=== PATIENT | female | born 1990 | race Asian ===

== ENCOUNTER 2018-09-22 17:56 | Emergency (ER) | payer BC ==
--- NOTE | 2018-09-22 18:02 | PDOC ---
Rapid Medical Evaluation Time Seen by Provider: 09/22/18 18:00 Medical Evaluation: 09/22/18 18:01 I have performed a brief in-person evaluation of this patient. The patient presents with a chief complaint of: vaginal bleeding Pertinent physical exam findings: deferred I have ordered the following: TVUS, labs The patient will proceed to the ED for further evaluation. Discharge Disposition - Diagnosis Vaginal bleeding affecting early - Referrals - Patient Instructions - Post Discharge Activity
[2018-09-22 18:06] VITALS: BP 128/84; PULSE 98; TEMP 98; BMI 28.5
[2018-09-22 18:51] LABS: HEMOGLOBIN 11.9 GM/dL (10.7-15.3); RBC 4.18 M/mm3 (3.60-5.2); WHITE BLOOD COUNT 7.4 K/mm3 (4.0-10.0)
[2018-09-22 18:52] LABS: EOS % 3.6 % (0-4.5); HEMATOCRIT 35.7 % (32.4-45.2); LYMPH % 32.7 % (8-40); MCH 28.6 pg (25.7-33.7); MCHC 33.4 g/dl (32.0-36.0); MEAN CELL VOLUME 85.6 fl (80-96); MONO % 6.4 % (3.8-10.2); NEUT % 56.3 % (42.8-82.8); PLATELET COUNT 241 K/MM3 (134-434)
[2018-09-22 19:22] LABS: ANION GAP 9 MMOL/L (8-16); BLOOD UREA NITROGEN 14 mg/dL (7-18); CHLORIDE 102 mmol/L (98-107); CO2 25 mmol/L (21-32); CREATININE 0.8 mg/dL (0.55-1.3); GLUCOSE,RANDOM 94 mg/dL (74-106); POTASSIUM 4.2 mmol/L (3.5-5.1); SODIUM 136 mmol/L (136-145)
[2018-09-22 19:25] LABS: HYALINE CASTS 0 /hpf (0-8); PH,URINE 6.5 (5.0-8.0); URINE APPEARANCE CLEAR; URINE BACTERIA 29.3 /hpf (NEGATIVE); URINE BILIRUBIN NEGATIVE (NEGATIVE); URINE COLOR YELLOW; URINE GLUCOSE (UA) NEGATIVE (NEGATIVE); URINE KETONE NEGATIVE (NEGATIVE); URINE LEUK ESTERASE NEGATIVE (NEGATIVE); URINE NITRITE NEGATIVE (NEGATIVE); URINE PROTEIN NEGATIVE (NEGATIVE); URINE RBC 153 /hpf (0-4); URINE UROBILINOGEN 0.2 mg/dL (0.2-1.0); URINE WBC 1 /hpf (0-5)
--- NOTE | 2018-09-22 20:22 | PDOC ---
History of Present Illness - General History Source: Patient Exam Limitations: No Limitations - History of Present Illness Initial Comments: 09/22/18 20:39 The patient is a 28 year old female () who presents to the emergency department with vaginal bleeding for several days. The patient reports that she has been experiencing intermittent spotting since her period ended on the . She states that she followed up with OB about 4 days ago by which she was noted to be . The patient reports on going spotting and some clots last night by which she came into the ED today for further evaluation. The patient reports that this is her second and her first was an emergency C- section at 29 weeks. She states that her first child is now 2 years old. The patient endorses some abdominal cramping and lower back pain with her symptoms. She denies any other symptoms or complaints. <Bairon Gomez - Last Filed: 09/22/18 20:38> <Delaney Mike - Last Filed: 09/23/18 02:38> - General Chief Complaint: Vaginal Bleeding Stated Complaint: BLEEDING Time Seen by Provider: 09/22/18 18:00 Past History <Bairon Gomez - Last Filed: 09/22/18 20:38> - Past Medical History COPD: No - Suicide/Smoking/Psychosocial Hx Smoking History: Never smoked Hx Alcohol Use: No Drug/Substance Use Hx: No <Delaney Mike - Last Filed: 09/23/18 02:38> - Past Medical History Allergies/Adverse Reactions: Allergies Allergy/AdvReac Type Severity Reaction Status Date / Time No Known Allergies Allergy Verified 09/22/18 18:06 Review of Systems - Review of Systems Able to Perform ROS?: Yes <Bairon Gomez - Last Filed: 09/22/18 20:38> - Review of Systems Able to Perform ROS?: Yes Is the patient limited Bengali proficient: No Constitutional: No: Symptoms Reported, See HPI, Chills, Diaphoresis, Fever, Loss of Appetite, Malaise, Night Sweats, Weakness, Weight Stable, Unintentional Wgt. Loss, Unexplained wgt Loss, Other HEENTM: No: Symptoms Reported, See HPI, Eye Pain, Blurred Vision, Tearing, Recent change in vision, Double Vision, Cataracts, Ear Pain, Ocular Prothesis, Ear Discharge, Nose Pain, Nose Congestion, Tinnitus, Nose Bleeding, Hearing Loss , Throat Pain, Throat Swelling, Mouth Pain, Dental Problems, Difficulty Swallowing, Mouth Swelling, Other Respiratory: No: Symptoms reported, See HPI, Cough, Orthopnea, Shortness of Breath, SOB with Exertion, SOB at Rest, Stridor, Wheezing, Productive cough, Hemoptysis, Other Cardiac (ROS): No: Symptoms Reported, See HPI, Chest Pain, Edema, Irregular Heart Rate, Lightheadedness, Palpitations, Syncope, Chest Tightness, Other ABD/GI: No: Symptoms Reported, See HPI, Abdominal Distended, Abd. Pain w/ defecation, Blood Streaked Bowels, Constipated, Diarrhea, Difficulty Swallowing , Nausea, Poor Appetite, Poor Fluid Intake, Rectal Bleeding, Vomiting, Indigestion, Abdominal cramping, Tarry Stools, Other : Yes: Other (scant vaginal bleeding) Musculoskeletal: No: Symptoms Reported, See HPI, Back Pain, Gout, Joint Pain, Joint Swelling, Muscle Pain, Muscle Weakness, Neck Pain, Joint Stiffness, Other Integumentary: No: Symptoms Reported, See HPI, Bruising, Change in Color, Change in Hair/Nails, Dryness, Erythema, Flushing, Lesions, Lumps, Pallor, Pruritus, Rash, Sweating, Other Neurological: No: Symptoms reported, See HPI, Headache, Numbness, Paresthesia, Pre-Existing Deficit, Seizure, Tingling, Tremors, Weakness, Unsteady Gait, Ataxia, Dizziness, Other <Delaney Mike - Last Filed: 09/23/18 02:38> *Physical Exam - Vital Signs Last Vital Signs Temp Pulse Resp BP Pulse Ox 98.0 F 98 H 20 128/84 99 09/22/18 18:01 09/22/18 18:01 09/22/18 18:01 09/22/18 18:01 09/22/18 18:01 <Bairon Gomez - Last Filed: 09/22/18 20:38> - Vital Signs Last Vital Signs Temp Pulse Resp BP Pulse Ox 98.0 F 98 H 20 128/84 99 09/22/18 18:01 09/22/18 18:01 09/22/18 18:01 09/22/18 18:01 09/22/18 18:01 <Delaney Mike - Last Filed: 09/23/18 02:38> ED Treatment Course - LABORATORY CBC & Chemistry Diagram: 09/22/18 18:19 09/22/18 18:19 - ADDITIONAL ORDERS Additional order review: Laboratory Results 09/22/18 09/22/18 18:29 18:19 Sodium 136 Potassium 4.2 Chloride 102 Carbon Dioxide 25 Anion Gap 9 BUN 14 Creatinine 0.8 Creat Clearance w eGFR 84.22 Random Glucose 94 Calcium 9.0 Beta HCG, Quant 5784.6 Urine Color Yellow Urine Appearance Clear Urine pH 6.5 Ur Specific [place] 1.022 Urine Protein Negative Urine Glucose (UA) Negative Urine Ketones Negative Urine Blood 3+ H Urine Nitrite Negative Urine Bilirubin Negative Urine Urobilinogen 0.2 Ur Leukocyte Esterase Negative Urine WBC (Auto) 1 Urine RBC (Auto) 153 Urine Casts (Auto) 0 U Epithel Cells (Auto) 1.0 Urine Bacteria (Auto) 29.3 09/22/18 18:19 RBC 4.18 MCV 85.6 MCHC 33.4 RDW 14.0 MPV 9.0 Neutrophils % 56.3 Lymphocytes % 32.7 Monocytes % 6.4 Eosinophils % 3.6 Basophils % 1.0 <Bairon Gomez - Last Filed: 09/22/18 20:38> - LABORATORY CBC & Chemistry Diagram: 09/22/18 18:19 09/22/18 18:19 - ADDITIONAL ORDERS Additional order review: Laboratory Results 09/22/18 09/22/18 18:29 18:19 Sodium 136 Potassium 4.2 Chloride 102 Carbon Dioxide 25 Anion Gap 9 BUN 14 Creatinine 0.8 Creat Clearance w eGFR 84.22 Random Glucose 94 Calcium 9.0 Beta HCG, Quant 5784.6 Urine Color Yellow Urine Appearance Clear Urine pH 6.5 Ur Specific [place] 1.022 Urine Protein Negative Urine Glucose (UA) Negative Urine Ketones Negative Urine Blood 3+ H Urine Nitrite Negative Urine Bilirubin Negative Urine Urobilinogen 0.2 Ur Leukocyte Esterase Negative Urine WBC (Auto) 1 Urine RBC (Auto) 153 Urine Casts (Auto) 0 U Epithel Cells (Auto) 1.0 Urine Bacteria (Auto) 29.3 09/22/18 18:19 RBC 4.18 MCV 85.6 MCHC 33.4 RDW 14.0 MPV 9.0 Neutrophils % 56.3 Lymphocytes % 32.7 Monocytes % 6.4 Eosinophils % 3.6 Basophils % 1.0 <Delaney Mike - Last Filed: 09/23/18 02:38> Medical Decision Making - Medical Decision Making 09/22/18 20:2 28-year-old female presents with vaginal bleeding and states that she is and has been to CLINICAL FIELD SPECIALIST for care. [facility] and got an [facility] and states that her beta-hCG was about 6000. Her last menstrual period was August 28 to September 01 and since then she's had some intermittent vaginal spotting. Beta-hCG 2, para 1. Past surgical history 1. The radiologist, Dr. Levine called with concern finding no IUP , but a right adnexal mass that measured 3.5 cm x 1.8 cm with positive color doppler and concern for ectopic 09/23/18 02:[address] Alvares and she ordered methotrexate which was given pt will follow up with Dr Cevallos or Dr Alvares this week for repeat bhcg imp ectopic preg <Delaney Mike - Last Filed: 09/23/18 02:38> *DC/Admit/Observation/Transfer - Attestations Scribe Attestion: 09/22/18 20:43 Documentation prepared by Biaron Gomez, acting as medical records receptionist for Delaney Mike MD. <Bairon Gomez - Last Filed: 09/22/18 20:38> <Delaney Mike - Last Filed: 09/23/18 02:38> Diagnosis at time of Disposition: Ectopic Qualifiers: Location of ectopic : tubal Intrauterine status: without intrauterine Laterality: right Qualified Code(s): O00.101 - Right tubal without intrauterine - Discharge Dispostion Disposition: HOME Condition at time of disposition: Stable - Referrals Referrals: Kinga Cevallos DO [Staff Physician] - Marisa Alvares MD [Staff Physician] - - Patient Instructions Printed Discharge Instructions: DI for Ectopic , Methotrexate ( Alternative Therapy) Additional Instructions: YOU HAVE BEEN DIAGNOSED WITH AN ECTOPIC AND NEED TO SEE YOUR CLINICAL FIELD SPECIALIST ON FRIDAY OR FRIDAY. CALL YOUR CLINICAL FIELD SPECIALIST FOR AN APPOINTMENT THIS WEEK YOU HAVE BEEN GIVEN A METHOTREXATE INJECTION
[2018-09-22] MEDS ORDERED: METHOTREXATE SODIUM/PF 25 MG/ML VIAL IM ONE (21:08)
== END 2018-09-22 23:05 | disposition home or self-care (01) ==
LOC: JER 17:56
PROC: 3E023GC Introduction of Other Therapeutic Substance into Muscle, Percutaneous Approach (ICD-10-PCS; principal; 2018-09-22)
DX: O26.891 Other specified pregnancy related conditions, first trimester (principal); O00.101 Right tubal pregnancy without intrauterine pregnancy; Z3A.01 Less than 8 weeks gestation of pregnancy
CPT/HCPCS: 36415; 76817-TC; 80048; 81003; 84702; 85025; 86850; 86900; 86901; 87086; 99283-25; J9260

== ENCOUNTER 2018-10-22 04:52 | Day surgery (SDC) | payer BC ==
[2018-10-21 15:36] VITALS: BMI 29.0
[2018-10-22] MEDS ORDERED: PROPOFOL 20 ML ONE (11:56)
[2018-10-22] MEDS ORDERED: MIDAZOLAM HCL 2 MG/2 ML SINGLE DOSE VIAL ONE (11:57)
[2018-10-22] MEDS ORDERED: ACETAMINOPHEN 325 MG TABLET (FP) PO PRN (12:09)
[2018-10-22] MEDS ORDERED: IBUPROFEN 800 MG/8 ML IJ IVPB PRN (12:09)
--- NOTE | 2018-10-22 12:09 | HP ---
History & Physical Update - History History: No Change - Physical Physical: No Change - Assessment Assessment: No Change - Plan Plan: No Change (No change in HP)
--- NOTE | 2018-10-22 12:10 | OP ---
Operative Note - Note: Operative Date: 10/22/18 Pre-Operative Diagnosis: Right Ectopic Operation: Laparoscopic right salpingectomy Post-Operative Diagnosis: Same as Pre-op Surgeon: Marisa Alvares Pipelines Supervisor: Patti Raza Anesthesia: General Estimated Blood Loss (mls): 10 Operative Report Dictated: Yes
[2018-10-22] MEDS ORDERED: ceFAZolin 2 GRAM PREMIX BAG IVPB ONE (12:26)
[2018-10-22] MEDS ORDERED: ceFAZolin SODIUM 1 GM VIAL ONE (12:34)
[2018-10-22] MEDS ORDERED: KETOROLAC TROMETHAMINE 30 MG/1 ML VIAL ONE (12:34)
[2018-10-22] MEDS ORDERED: DEXAMETHASONE SOD PHOSPHATE 4 MG/1 ML VIAL ONE (12:34)
[2018-10-22] MEDS ORDERED: GLYCOPYRROLATE 0.2 MG/1 ML VIAL ONE (12:48)
[2018-10-22] MEDS ORDERED: NEOSTIGMINE METHYLSULFATE 0.5 MG/ML - 10 ML MDV ONE (12:48)
[2018-10-22] MEDS ORDERED: ONDANSETRON 4 MG/2 ML VIAL IVPUSH PRN (13:37)
[2018-10-22] MEDS ORDERED: oxyCODONE HCL 5 MG TABLET PO PRN (13:37)
--- NOTE | 2018-10-22 13:39 | SURG ---
Surgery Perl Programmer Note Perl Programmer: Patti Raza PA-C Date of Service: 10/22/18 Diagnosis: Right Ectopic Procedure: laparoscopic right salpingectomy I was present for the entirety of the operative procedure. For further detail, please refer to operative report. Visit type - Case Type Case Type: Scheduled - Emergency Emergency Visit: No - New patient This patient is new to me today: Yes Date on this admission: 10/22/18
[2018-10-22] MEDS ORDERED: LACTATED RINGERS SOLUTION 1,000 ML IV SCH (13:45)
[2018-10-22] MEDS ORDERED: MEPERIDINE HCL 25 MG/ML VIAL ONE (15:34)
[2018-10-22 16:34] LABS: BASO % 0.3 % (0-2.0); EOS % 0.1 % (0-4.5); HEMATOCRIT 36.2 % (32.4-45.2); HEMOGLOBIN 11.6 GM/dL (10.7-15.3); LYMPH % 8.3 % (8-40); MCH 27.7 pg (25.7-33.7); MCHC 32.2 g/dl (32.0-36.0); MEAN CELL VOLUME 86.2 fl (80-96); MEAN PLT VOLUME 9.6 fl (7.5-11.1); MONO % 1.2 % (3.8-10.2); NEUT % 90.1 % (42.8-82.8); PLATELET COUNT 221 K/MM3 (134-434); RDW 13.9 % (11.6-15.6); WHITE BLOOD COUNT 12.2 K/mm3 (4.0-10.0)
[2018-10-22] MEDS ORDERED: MEPERIDINE HCL CARPU-JECT 50 MG/1 ML DISP.SYRIN IM PRN (17:24)
[2018-10-22] MEDS ORDERED: ELECTROLYTE-148 SOLN 1,000 ML IV SCH (17:30)
[2018-10-22 19:42] LABS: HEMATOCRIT 39.8 % (32.4-45.2); HEMOGLOBIN 12.7 GM/dL (10.7-15.3); MCH 27.3 pg (25.7-33.7); MCHC 31.9 g/dl (32.0-36.0); MEAN CELL VOLUME 85.6 fl (80-96); MEAN PLT VOLUME 9.8 fl (7.5-11.1); PLATELET COUNT 243 K/MM3 (134-434); RBC 4.65 M/mm3 (3.60-5.2); RDW 14.1 % (11.6-15.6); WHITE BLOOD COUNT 11.4 K/mm3 (4.0-10.0)
[2018-10-22] MEDS: BENZOCAINE/MENTH/CETYLPYRD CL 1 EACH LOZENGE MM PRN (22:07)
--- NOTE | 2018-10-22 23:21 | OP ---
DATE OF OPERATION: 10/22/2018 PREOPERATIVE DIAGNOSIS: Right ectopic . OPERATION: Laparoscopic right salpingectomy. POSTOPERATIVE DIAGNOSIS: Right ectopic . SURGEON: Flores Alvares M.D. REBAR BENDER: Chip Nunez ESTIMATED BLOOD LOSS: About 10 mL. PROCEDURE: Patient was taken to the operating room, placed in dorsal lithotomy position, prepped and draped in usual sterile fashion. A timeout was performed in accordance with hospital regulation. A Perea catheter was inserted into the bladder. Attention was then drawn to the umbilicus, where an 5-mm umbilical incision was made. Veress needle was inserted into the cavity. Approximately 3-4 L of CO2 was insufflated in the cavity. Veress needle was then removed, and a 5-mm trocar was then inserted. Laparoscope and camera attached. Visualization revealed right ectopic about 3-4 cm in size. Two trocars were placed, one in the suprapubic region due to adhesions noted on the left side of the abdomen, omental adhesions, and also one 5 mm incision made on the right side. Trocars were inserted under direct visualization. The LigaSure then used to perform a right salpingectomy, coagulation and cutting of the tube was then done. The skin incision was then extended, and an 11-mm trocar was then inserted. The endobag was then placed, and ectopic was placed in the bag, and the bag was then removed with the ectopic . Michi-Zackary device was then used to close the fascia of the abdomen using 0 Vicryl suture, and skin was then closed using 4-0 Biosyn suture in subcuticular fashion. Wound was washed and dressed. Patient tolerated procedure well. Estimated blood loss was about 10 mL. FLORES ALVARES M.D. ELLIOT/[id number] MTDD
[2018-10-23] MEDS: BENZOCAINE/MENTH/CETYLPYRD CL 1 EACH LOZENGE MM PRN ×2 (02:15→05:45)
[2018-10-23 02:43] LABS: EPI CELLS 1.9 /HPF (0-5/HPF); PH,URINE 6.5 (5.0-8.0); URINE APPEARANCE CLEAR; URINE BACTERIA 1.7 /hpf (NEGATIVE); URINE BILIRUBIN NEGATIVE (NEGATIVE); URINE CASTS 3 /lpf (0-8); URINE COLOR YELLOW; URINE GLUCOSE (UA) NEGATIVE (NEGATIVE); URINE KETONE 2+ (NEGATIVE); URINE LEUK ESTERASE TRACE (NEGATIVE); URINE NITRITE NEGATIVE (NEGATIVE); URINE PROTEIN NEGATIVE (NEGATIVE); URINE RBC 1 /hpf (0-4); URINE UROBILINOGEN 0.2 mg/dL (0.2-1.0); URINE WBC 2 /hpf (0-5)
--- NOTE | 2018-10-23 08:08 | PN ---
Progress Note (short form) - Note Progress Note: surgery POD #1 laparoscopic right salpingectomy patient seen and examined at bedside stated her pain has improved. She required assistance ambulating to bathroom last night but tolerated her diet. She states the pain is at the level of the diaphragm on the right side extending to flank and posterior. She denies any CP , SOB, N/V fever or chills. Vital Signs Temp 98.2 F 10/23/18 05:48 Pulse 71 10/23/18 05:48 Resp 20 10/23/18 05:48 BP 115/60 10/23/18 05:48 Pulse Ox 99 10/22/18 19:46 Intake & Output 10/22/18 10/22/18 10/23/18 11:59 23:59 11:59 Intake Total 600 1170 Output Total 1055 250 Balance -455 920 Intake: IV 600 900 Lactated Ringers Solution 900 1,000 ml @ 75 mls/hr IV ASDIR TARIQ Rx#:[id number] IVPB 250 Oral 20 Output: Urine 1050 250 Void 750 250 Estimated Blood Loss 5 Other: # Unmeasured Voids Void 1 CBC, BMP 10/22/18 19:13 PE: A&Ox3, NAD unlbaored resp on RA Abd: obese, ND, dressing c/d/i with surrounding tissue intact, no tracking erythema or evidence of collection or d/c. Abdomen tender to palpation diffusely R>L. mild TTP over right flank/posterior. Problem List - Problems (1) Ectopic Assessment/Plan: POD #1 laparoscopic right salpingectomy with pain control issues overnight, improving this morning, likely gas pain. 1) Regular diet 2) encourage OOB/ambulation will help with gas pain 3) encourage IS 4) d/c home today. Code(s): O00.90 - UNSPECIFIED ECTOPIC WITHOUT INTRAUTERINE
[2018-10-23 10:05] VITALS: BP 123/73; PULSE 68; TEMP 98
--- NOTE | 2018-10-27 13:08 | PATH ---
Surgical Pathology Report Patient Name: AMERICO CHO Med. Rec. #: [id number] /Age/Gender: 1990 (Age: 28) / F Account: [id number] Location: [facility] SURGICAL Taken: 10/22/2018 Received: 10/23/2018 Reported: 10/26/2018 Physicians: Marisa Alvares M.D. Specimen(s) Received RIGHT FALLOPIAN TUBE Clinical History Right ectopic Final Diagnosis FALLOPIAN TUBE, RIGHT, LAPAROSCOPIC SALPINGECTOMY: CHORIONIC VILLI IN A BACKGROUND OF HEMORRHAGE PRESENT WITHIN THE FALLOPIAN TUBE, CONSISTENT WITH ECTOPIC . Electronically Signed Beverly Mathis M.D. Gross Description Received in formalin labeled "right tube" is a 3 x 3 x 2 cm distended sac like structure with a smooth sarabia outer surface. No fimbria identified. On cut section the lumen is distended by dark red blood clot. No definitive chorionic villi identified. Hemming And Tacking Machine Operator sections are submitted in 3 cassettes. [email or web address]/10/23/2018 [email or web address]/10/23/2018
== END 2018-10-23 10:10 | disposition home or self-care (01) ==
LOC: JASU-SURG 04:52 → J3W 18:00 → JASU-SURG 10-23 10:10
PROVIDERS: ATTEND Obstetrics & Gynecology
PROC: 0UT54ZZ Resection of Right Fallopian Tube, Percutaneous Endoscopic Approach (ICD-10-PCS; 2018-10-22)
PROC: 10T24ZZ Resection of Products of Conception, Ectopic, Percutaneous Endoscopic Approach (ICD-10-PCS; principal; 2018-10-22 10:00)
DX: O00.101 Right tubal pregnancy without intrauterine pregnancy (principal)
CPT/HCPCS: 36415; 81003; 85025; 85027; 88305-TC; 94760